=== PATIENT | male | born 2000 | race Caucasian/White ===

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

== ENCOUNTER 2021-08-14 14:18 | Emergency (ER) | payer OTHER ==
[~2021-08-14] VITALS: Ht 182.9 cm; Wt 91.8 kg
[2021-08-14 14:18] VITALS: BP 144/66
[2021-08-14] MEDS ORDERED: AMPH1TAB2 PO (14:23)
[2021-08-14] MEDS ORDERED: IBUPROFEN 800 MG TAB PO ONE (14:50)
[2021-08-14] MEDS ORDERED: EQ A TOP (15:10)
== END 2021-08-14 15:35 | disposition home or self-care (01) ==
LOC: M ED 14:18
DX: S93.401A Sprain of unspecified ligament of right ankle, initial encounter (principal); B35.3 Tinea pedis; Y92.9 Unspecified place or not applicable; Y93.9 Activity, unspecified; Y99.9 Unspecified external cause status

== ENCOUNTER → 2023-01-23 | Outpatient (REF) | payer OTHER ==
[~2023-01-23] MED LIST: AMPH1TAB2 PO; EQ A TOP
== END ==
LOC: M SFHCCLAY 13:03
PROVIDERS: ATTEND Nurse Practitioner Family
DX: F90.0 Attention-deficit hyperactivity disorder, predominantly inattentive type (principal)

== ENCOUNTER 2024-09-30 13:57 | Outpatient (RCR) | payer MEDICAID, SELFPAY | END 2024-10-07 | LOC: M OUTALCOH 13:57 | PROVIDERS: ATTEND Psychiatry & Neurology Psychiatry | DX: F15.20 Other stimulant dependence, uncomplicated (principal); F12.20 Cannabis dependence, uncomplicated; F17.200 Nicotine dependence, unspecified, uncomplicated ==

== ENCOUNTER 2024-11-06 16:00 | Outpatient (RCR) | payer MEDICAID | END 2024-11-07 | LOC: M OUTALCOH 16:00 | PROVIDERS: ATTEND Psychiatry & Neurology Psychiatry | DX: F15.20 Other stimulant dependence, uncomplicated (principal); F12.20 Cannabis dependence, uncomplicated; F17.200 Nicotine dependence, unspecified, uncomplicated ==

== ENCOUNTER 2024-11-20 15:00 | Outpatient (RCR) | payer MEDICAID | END 2024-12-08 | LOC: M OUTALCOH 15:00 | PROVIDERS: ATTEND Psychiatry & Neurology Psychiatry | DX: F12.20 Cannabis dependence, uncomplicated (principal); F15.20 Other stimulant dependence, uncomplicated; F17.200 Nicotine dependence, unspecified, uncomplicated ==